=== PATIENT | male | born 1985 | race African-American/Black ===

== ENCOUNTER 2017-08-13 23:34 | Emergency (ER) | payer OTHER ==
[~2017-08-13] VITALS: Ht 185.4 cm; Wt 95.0 kg
[~2017-08-13 23:34] MED LIST: AMOX500T PO; ANTISOL30 AU; Z.0.NO CURRENT MEDS
[2017-08-14 00:05] VITALS: BP 128/82; PULSE 56; RESP 18; TEMP 98; O2SAT 100
[2017-08-14] MEDS ORDERED: ACETAMINOPHEN/HYDROcodone 325 MG/5 MG TAB PO ONE (02:30)
[2017-08-14] MEDS ORDERED: IBUPROFEN 800 MG TAB PO ONE (02:30)
--- NOTE | 2017-08-14 02:30 | PD ---
HPI Chief Complaint: Musculoskeletal Complaint Time Seen by Provider: 02:15 Travel History International Travel<30 days: No Contact w/Intl Traveler<30days: No Traveled to known affect area: No History of Present Illness HPI 31-year-old right-hand dominant white male presents emergency [facility] for evaluation of left shoulder pain from injury at work release that occurred this afternoon around 1:00. The patient states that he is up-to-date with immunizations. He was moving a large piece of [place] on a cart when the piece shifted falling back against his left clavicle. The patient states that he did not come in initially because he was on work release had to go back to the facility before coming to the ER. He denies injury to his head, neck or back. He states the pain is moderate. Worse with movement of the left shoulder. He denies any sensory changes. PFSH Past Medical History Medical History: Denies Significant Hx Diminished Hearing: No Tetanus Vaccination: < 5 Years Influenza Vaccination: No Past Surgical History Surgical History: No Previous Surgery Social History Alcohol Use: No Tobacco Use: Yes (1/2 pack per day) Substance Use: No Allergies-Medications (Allergen,Severity, Reaction): Coded Allergies: No Known Allergies (Verified Adverse Reaction, Unknown, 08/14/17) Reported Meds & Prescriptions Reported Meds & Active Scripts Active Review of Systems Except as stated in HPI: all other systems reviewed are Neg Physical Exam Narrative GENERAL: Well-developed, well-nourished in no apparent distress. Nontoxic appearing. HEAD: Normocephalic, atraumatic. EYES: Pupils equal round and reactive. Extraocular motions intact. No scleral icterus. No injection or drainage. ENT: Nose clear. Throat without erythema, tonsillar hypertrophy or exudate. Uvula midline. Airway patent. NECK: Trachea midline. Supple, nontender, moves head freely. No central bony tenderness or spasm. CARDIOVASCULAR: Regular rate and rhythm without murmurs, gallops, or rubs. RESPIRATORY: Clear to auscultation. Breath sounds equal bilaterally. No wheezes , rales, or rhonchi. GASTROINTESTINAL: Abdomen soft, non-tender, nondistended. No hepato-splenomegaly , or palpable masses. No guarding. EXTREMITIES: No clubbing, cyanosis, or edema. The patient has an abrasion over the proximal left clavicle with minimal swelling. There is no laceration. Patient complains of exquisite localizing tenderness. He has referred pain to his left shoulder. The patient has decreased range of motion in the left shoulder due to pain. There is no pain in the glenohumeral joint, elbow, wrist or hand. He has intact median/ulnar/radial nerves. The right upper extremity as well as the lower extremities are without localizing bony tenderness or deformity. BACK: Nontender without deformity. No flank tenderness. NEUROLOGICAL: Awake, alert and oriented x 3 .Cranial nerves grossly intact. Motor and sensory grossly within normal limits. Normal speech. Data Data Last Documented VS Vital Signs Date Time Temp Pulse Resp B/P (MAP) Pulse Ox O2 Delivery O2 Flow Rate FiO2 08/14/17 00:05 98.0 56 18 128/82 (97) 100 Orders Orders Clavicle (08/14/17 02:22) Ice/Cold Pack (08/14/17 02:22) Acetamin-Hydrocod 325-5 Mg ([place] 5-325 (08/14/17 02:30) Ibuprofen (Motrin) (08/14/17 02:30) Ed Discharge Order (08/14/17 03:03) MDM Medical Decision Making Medical Screen Exam Complete: Yes Emergency Medical Condition: Yes Medical Record Reviewed: Yes Interpretation(s) Last 24 hours Impressions Clavicle X-Ray 08/14/17221 Signed Impressions: CONCLUSION: Negative trauma study. Differential Diagnosis MDM: High Differential diagnoses: Fracture, sprain, strain, dislocation, contusion, neurovascular injury Narrative Course Patient is given [place] 5 mg and Motrin 800 mg p.o. ice pack applied. X-ray of the left clavicle is negative for bony injury. This is left clavicle/chest wall contusion Diagnosis Primary Impression: Left chest wall contusion Additional Impression: Left clavicle contusion Patient Instructions: Narcotic given in the ED, General Instructions Additional Instructions: Rest. Ice for the next 3 days followed by liza Grewal. Follow-up with workman's comp in the next 5 days. Return to the ER for emergencies. Med/Other Pt SpecificInfo: Prescription(s) given, Orthopedic Instructions Scripts No Active Prescriptions or Reported Meds Disposition: 01 DISCHARGE HOME Condition: Stable Burke García Aug 14, 2017 02:30
--- NOTE | 2017-08-14 02:56 | RADRPT ---
EXAM DATE: 08/14/2017 2:52 AM EDT AGE/SEX: 31 years / Male INDICATIONS: Fall. Left clavicle pain. CLINICAL DATA: This is the patient's initial encounter. Patient reports that signs and symptoms have been present for 1 day and indicates a pain score of 6/10. MEDICAL/SURGICAL HISTORY: None. None. COMPARISON: No prior exams available for comparison. FINDINGS: Bony structures are intact and in normal alignment. Osseous density is normal. Soft tissues are unre markable. No radiopaque foreign bodies seen. CONCLUSION: Negative trauma study. Electronically signed by: Bi Stevens MD 08/14/2017 2:55 AM EDT
[2017-08-14] MEDS ORDERED: DICL75TA PO (03:08)
== END 2017-08-14 03:30 | disposition home or self-care (01) ==
LOC: NEPD 23:34
DX: S20.212A Contusion of left front wall of thorax, initial encounter (principal); S40.012A Contusion of left shoulder, initial encounter; W20.8XXA Other cause of strike by thrown, projected or falling object, initial encounter; Y99.0 Civilian activity done for income or pay; F17.210 Nicotine dependence, cigarettes, uncomplicated
CPT/HCPCS: 73000; 99283